=== PATIENT | female | born 1985 | race Two or more races ===

== ENCOUNTER 2023-03-22 12:43 | Outpatient (CLI) | payer OTHER | END 2023-03-22 15:11 | disposition home or self-care (01) | LOC: PRENATAL 12:43 | PROVIDERS: ATTEND Obstetrics & Gynecology Maternal & Fetal Medicine | DX: O36.80X0 Pregnancy with inconclusive fetal viability, not applicable or unspecified (principal); O28.5 Abnormal chromosomal and genetic finding on antenatal screening of mother; O09.529 Supervision of elderly multigravida, unspecified trimester; Z3A.14 14 weeks gestation of pregnancy ==